=== PATIENT | female | born 1950 ===

== ENCOUNTER 2021-04-20 12:30 | Inpatient (IN) | payer OTHER ==
[~2021-04-20] VITALS: Ht 30.5 cm; Wt 5.0 kg
[2021-04-28] MEDS ORDERED: PANTOPRAZOLE SO40 MG (08:22)
[2021-04-28] MEDS ORDERED: MONTELUKAST SOD10 MG (08:23)
== END 2021-04-28 10:47 | disposition home or self-care (01) | DRG 737 ==
LOC: O/R 04-27 05:28 → OB/GYN 04-27 05:28 → SURH 04-27 07:00 → OB/GYN 04-27 12:36
PROVIDERS: ADMIT Obstetrics & Gynecology Gynecologic Oncology; ATTEND Obstetrics & Gynecology Gynecologic Oncology
PROC: 0UT24ZZ Resection of Bilateral Ovaries, Percutaneous Endoscopic Approach (ICD-10-PCS; 2021-04-27)
PROC: 0UT74ZZ Resection of Bilateral Fallopian Tubes, Percutaneous Endoscopic Approach (ICD-10-PCS; 2021-04-27)
PROC: 07BC4ZZ Excision of Pelvis Lymphatic, Percutaneous Endoscopic Approach (ICD-10-PCS; 2021-04-27)
PROC: 0DBU4ZZ Excision of Omentum, Percutaneous Endoscopic Approach (ICD-10-PCS; 2021-04-27)
PROC: 0TBB4ZZ Excision of Bladder, Percutaneous Endoscopic Approach (ICD-10-PCS; 2021-04-27)
PROC: 0UT94ZZ Resection of Uterus, Percutaneous Endoscopic Approach (ICD-10-PCS; principal; 2021-04-27 07:00)
DX: C56.2 Malignant neoplasm of left ovary (principal); C48.2 Malignant neoplasm of peritoneum, unspecified; I10 Essential (primary) hypertension